=== PATIENT | male | born 1950 ===

== ENCOUNTER 2018-10-12 13:34 | Outpatient (CLI) | payer OTHER | END 2018-10-12 13:36 | disposition home or self-care (01) | LOC: SONOGRAMA 13:34 → MAMO-SONO 14:15 | DX: M19.91 Primary osteoarthritis, unspecified site (principal); M17.0 Bilateral primary osteoarthritis of knee ==

== ENCOUNTER 2019-04-26 10:34 | Outpatient (CLI) | payer OTHER | END 2019-04-26 10:40 | disposition home or self-care (01) | LOC: LAB 10:34 | DX: N20.0 Calculus of kidney (principal) ==

== ENCOUNTER 2019-04-30 07:22 | Outpatient (CLI) | payer OTHER | END 2019-04-30 13:34 | disposition home or self-care (01) | LOC: TOM 07:22 | DX: M17.0 Bilateral primary osteoarthritis of knee (principal) | CPT/HCPCS: 71260; 73565; Q9965 ==

== ENCOUNTER 2021-04-08 08:33 | Outpatient (CLI) | payer OTHER | END 2021-04-08 08:42 | disposition home or self-care (01) | LOC: RX STUDY 08:33 | PROVIDERS: ATTEND Internal Medicine Gastroenterology | DX: K22.89 Other specified disease of esophagus (principal); R13.14 Dysphagia, pharyngoesophageal phase ==